=== PATIENT | female | born 1985 ===

== ENCOUNTER 2018-03-23 09:13 | Day surgery (SDC) | payer OTHER ==
[~2018-03-23 09:13] MED LIST: CIPRO100 MG
== END 2018-03-23 14:50 | disposition home or self-care (01) ==
LOC: AMB-ENDOS 09:13
DX: K29.60 Other gastritis without bleeding (principal); K44.9 Diaphragmatic hernia without obstruction or gangrene

== ENCOUNTER 2019-06-15 07:11 | Day surgery (SDC) | payer OTHER ==
[~2019-06-15 07:11] MED LIST changes: +FAXIGA PO; +METROPOLOL PO; +WELLBUTRIN SR150 MG PO
== END 2019-06-15 15:50 | disposition home or self-care (01) ==
LOC: CIR.AMB 07:11
DX: N84.3 Polyp of vulva (principal); N92.0 Excessive and frequent menstruation with regular cycle